=== PATIENT | male | born 1955 | race Caucasian/White ===

== ENCOUNTER → 2019-03-21 | Outpatient (CLI) | payer BC ==
[~2019-03-21] MED LIST: AMOX-559 PO; ASP325 PO; ASPI-1471 PO; ATOR-1 PO; ATOR40TA24 PO; CARV3.1255 PO; CHOL200074 PO; CLOP75TA43 PO; EZE10 PO; LACT1CAP6 PO; LIS10 PO; LORA-1456 PO; METO25TA89 PO; PAN40 PO; PROP10TA58 PO; SIMV-44 PO; VITA1CAP46 PO; [UNRECOGNIZED DRUG - CODE] PO; [UNRECOGNIZED DRUG - REMARK]
== END ==
LOC: LAB 14:15
PROVIDERS: ATTEND Internal Medicine
DX: I25.10 Atherosclerotic heart disease of native coronary artery without angina pectoris (principal); E78.5 Hyperlipidemia, unspecified; E11.9 Type 2 diabetes mellitus without complications
CPT/HCPCS: 36415; 83036